=== PATIENT | female | born 1970 | race Caucasian/White ===

== ENCOUNTER 2020-05-25 14:31 | Emergency (ER) | payer MEDICAID ==
[~2020-05-25] VITALS: Ht 157.5 cm; Wt 88.0 kg
[2020-05-25 18:28] LABS: EOSINOPHILS % 0.6 % (0.0-5.0); HEMATOCRIT. 38.5 % (36.0-48.0); HEMOGLOBIN. 12.8 g/dL (12.0-16.0); LYMPHOCYTES % 23.5 % (20.0-50.0); MEAN CORPUSCULAR HEMOGLOBIN 29.6 pg (28.0-32.0); MEAN CORPUSCULAR VOLUME 89.4 fL (81.0-99.0); MEAN PLATELET VOLUME 7.9 fl (7.4-10.4); MONOCYTES % 7.3 % (2.0-8.0); NEUTROPHILS % 67.6 % (40.0-76.0); PLATELET 296 x1000/uL (130-400); RED CELL DISTRIBUTION WIDTH 13.3 % (11.6-14.6)
[2020-05-25 18:29] LABS: CHLORIDE 106 mEq/L (98-107)
[2020-05-25 20:20] LABS: CLARITY URINE CLEAR (CLEAR); COLOR URINE YELLOW (YELLOW); KETONES URINE NEGATIVE (NEGATIVE); LEUKOCYTE ESTERASE URINE NEGATIVE (NEGATIVE); NITRITE URINE NEGATIVE (NEGATIVE); OCCULT BLOOD URINE NEGATIVE (NEGATIVE); PH URINE 7.5 (4.5-8.0); PROTEIN URINE NEGATIVE (NEGATIVE); SPECIFIC GRAVITY URINE 1.011 (1.005-1.030); UROBILINOGEN URINE 0.2 E.U./dL (0.2-1.0)
[2020-05-25] MEDS ORDERED: DOXYCYCLINE HYCLATE 100MG CAPSULE PO NR (20:45)
[2020-05-25 23:06] VITALS: BP 149/69
== END 2020-05-25 23:07 | disposition home or self-care (01) ==
LOC: ER 15:07
DX: J18.9 Pneumonia, unspecified organism (principal); R06.00 Dyspnea, unspecified; R07.89 Other chest pain; I10 Essential (primary) hypertension; J45.909 Unspecified asthma, uncomplicated; K21.9 Gastro-esophageal reflux disease without esophagitis; Z98.890 Other specified postprocedural states; Z88.6 Allergy status to analgesic agent
CPT/HCPCS: 36415; 71045; 80053; 81003; 83880; 84484; 85025; 93005; 99285

== ENCOUNTER 2020-05-30 00:17 | Emergency (ER) | payer MEDICAID ==
[~2020-05-30] VITALS: Ht 165.1 cm; Wt 100.0 kg
[2020-05-30] MEDS ORDERED: DIPHENHYDRAMINE 25MG CAPSULE PO ONE (00:45)
[2020-05-30] MEDS ORDERED: PREDNISONE 20MG TABLET PO ONE (00:45)
[2020-05-30 00:59] VITALS: BP 120/54
== END 2020-05-30 01:01 | disposition home or self-care (01) ==
LOC: ER 00:17
DX: T78.40XA Allergy, unspecified, initial encounter (principal); X58.XXXA Exposure to other specified factors, initial encounter
CPT/HCPCS: 99283; J7512; Q0163